=== PATIENT | female | born 1980 | race Caucasian/White ===

== ENCOUNTER 2016-08-14 08:31 | Emergency (ER) | payer MEDICAID ==
[2016-08-14 09:47] VITALS: BP 136/88
--- NOTE | 2016-08-14 09:48 | ERNOTE ---
Date of Service: 08/14/16 Time Seen by Provider: 08/14/16 09:03 Stated Complaint: BRONCHITIS Presenting Symptoms:: cough Source: patient, family Exam Limitations: no limitations Immunizations: IMMUNIZATION HX History of Influenza Vaccine Yes Allergies/Adverse Reactions: Allergies bee venom (honey bee) Allergy (Severe, Verified 08/14/16 08:48) Anaphylaxis Penicillins Allergy (Unknown, Verified 08/14/16 08:48) unknown Home Medications: HOME MEDICATIONS Albuterol Sulfate 2.5 mg IH Q6H 06/20/16 [Last Taken Unknown] Albuterol Sulfate [Proair Hfa] 2 puff IH Q4H PRN 06/20/16 [Last Taken Unknown] Albuterol Sulfate/Ipratropium [Duoneb 2.5-0.5MG/3ML Soln] 3 ml IH QID PRN [Last Taken Unknown] Epinephrine [Epipen 2-David] 0.3 mg IM ONCE PRN 06/20/16 [Last Taken Unknown] Fluticasone Propionate [Flonase] 1 spray NS BID 06/20/16 [Last Taken Unknown] Fluticasone/Salmeterol [Advair 250-50 Diskus] 1 puff IH BID 06/20/16 [Last Taken Unknown] Lanolin Alcohol/Mo/W.pet/[place] [Eucerin Creme] 1 applic TP BID 06/20/16 [Last Taken Unknown] Loratadine [Claritin] 10 mg PO DAILY 06/20/16 [Last Taken Unknown] Vit#96/Ferrous Fum/FA [ S] 1 tab PO DAILY 06/20/16 [Last Taken Unknown] Salicylic Acid 1 applic TP DAILY PRN 06/20/16 [Last Taken Unknown] Levofloxacin [Levaquin] 750 mg PO DAILY #10 tab 08/14/16 [Last Taken Unknown] - History of Present Ilness Narrative: 3 days ago this 35-year-old woman developed a stuffy runny nose, scratchy throat and cough. The cough is nonproductive. She has had no fever. The cough is getting worse. She is not using any treatment but cough medicine at home. Her significant other began a similar illness the day after she did. She often has this in the wintertime. There are no other symptoms. Timing: constant, getting worse Severity: mild, moderate Frequency/Possible Cause: Reports: occasional episodes Modifying Factors - Improves: Reports: nothing Modifying Factors - Worsens: Reports: activity, coughing, lying down Associated Symptoms: Reports: chest pain/soreness, cough, nasal congestion, nasal drainage Prior Treatment: Denies: recently seen, currently on antibiotics Review of Systems - Review of Systems Constitutional: Present: malaise EYE: Present: no symptoms reported ENT: Present: See HPI Respiratory: Present: See HPI Cardiology: Present: no symptoms reported Gastrointestinal/Abdominal: Present: no symptoms reported Genitourinary: Present: no symptoms reported Musculoskeletal: Present: no symptoms reported Skin: Present: no symptoms reported Neurological: Present: no symptoms reported Endocrine: Present: no symptoms reported Hematologic/Lymphatic: Present: no symptoms reported Psych: Present: no symptoms reported All Other Systems: All systems neg except as marked - Patient's Past Medical History Patient History - Medical: Other - cleft palate, ear infections. Patient History - Cardiac/Respiratory: Asthma Patient History - Cancer: No Hx of Cancer Patient History - Surgical Procedures: Ear Tubes, Other - cleft palate repair. - Family History Mother Family History - Medical: , No pertinent hx Family History - Cardiac/Respiratory: Coronary Heart Disease Father Family History - Medical: Family History - Cardiac/Respiratory: No pertinent hx - Social History Living Situations: home Smoking Status: Current every day smoker Alcohol Use: none Drug Use: other Physical Exam - Physical Exam General Appearance: Present: wd/wn, alert, no apparent distress Eye Exam: Normal inspection: bilateral, PERRL: bilateral, EOMI: right - right exotropia Ears, Nose, Throat: Present: normal ENT inspection, hearing grossly normal, nasal congestion, pharyngeal erythema Neck: Present: normal inspection, nontender Respiratory: Present: no respiratory distress, normal breath sounds, no accessory muscle use Cardiovascular/Chest: Present: regular rate, rhythm, no murmur Gastrointestinal/Abdominal: Present: normal bowel sounds, nontender, nondistended, soft, no organomegaly Back Exam: Present: normal inspection Extremity Exam: Present: normal inspection, no edema Neurological Exam: Present: alert, oriented, no motor/sensory deficits Skin Exam: Present: normal color, warm/dry ED Progress - Vital Signs Patient's Vital Signs:: I have reviewed the patient's vital signs. Vital Signs: Vital Signs 08/14/16 08:44 Temperature 36.8 C Pulse Rate 60 Respiratory 12 Rate Blood Pressure 132/37 O2 Sat by Pulse 94 Oximetry - Progress/Reassessment Chief Complaint: Upper Respiratory Symptoms Departure - Departure Clinical Impression: COPD exacerbation Disposition: Home self-care Condition: Good Instructions: Acute Bronchitis Additional Instructions: Followup with Dr. Alberts next week. Referrals: Simon Barba MD [Primary Care Provider] - Prescriptions: Levofloxacin [Levaquin] 750 mg PO DAILY #10 tab
== END 2016-08-14 09:48 | disposition home or self-care (01) ==
LOC: ER 08:31
DX: J44.1 Chronic obstructive pulmonary disease with (acute) exacerbation (principal); F17.210 Nicotine dependence, cigarettes, uncomplicated

== ENCOUNTER 2016-12-11 11:53 | Emergency (ER) | payer MEDICAID ==
[2016-12-11 12:06] VITALS: BP 119/67
--- NOTE | 2016-12-11 12:28 | ERNOTE ---
Date of Service: 12/11/16 Time Seen by Provider: 12/11/16 12:17 Stated Complaint: COUGH Presenting Symptoms:: cough Immunizations: IMMUNIZATION HX Immunizations Up to Date No History of Influenza Vaccine No Hx Pneumococcal Vaccination No Allergies/Adverse Reactions: Allergies venom-honey bee [bee venom (honey bee)] Allergy (Severe, Verified 12/11/16 12:16 ) Anaphylaxis Penicillins Allergy (Unknown, Verified 12/11/16 12:16) unknown Home Medications: HOME MEDICATIONS Albuterol Sulfate 2.5 mg IH Q6H 06/20/16 [Last Taken Unknown] Albuterol Sulfate [Proair Hfa] 2 puff IH Q4H PRN 06/20/16 [Last Taken Unknown] Albuterol Sulfate/Ipratropium [Duoneb 2.5-0.5MG/3ML Soln] 3 ml IH QID PRN [Last Taken Unknown] EPINEPHrine [Epipen 2-David] 0.3 mg IM ONCE PRN 06/20/16 [Last Taken Unknown] Fluticasone Propionate [Flonase] 1 spray NS BID 06/20/16 [Last Taken Unknown] Fluticasone/Salmeterol [Advair 250-50 Diskus] 1 puff IH BID 06/20/16 [Last Taken Unknown] Vit#96/Ferrous Fum/FA [ S] 1 tab PO DAILY 06/20/16 [Last Taken Unknown] Salicylic Acid 1 applic TP DAILY PRN 06/20/16 [Last Taken Unknown] Fluticasone Propionate [Flonase Allergy Relief] 9.9 ml NS DAILY 30 Days [Last Taken Unknown] - History of Present Ilness Narrative: patient states that her symptoms a few weeks ago. coughing, unable to get anything up, stuffy nose. Date (Duration): 12/11/16 Timing: constant Severity: mild Frequency/Possible Cause: Reports: smoke exposure Modifying Factors - Improves: Reports: other - sitting up Modifying Factors - Worsens: Reports: lying down Associated Symptoms: Reports: cough, shortness of breath - with long walks, nasal congestion. Denies: chest pain/soreness, facial pain, earache, headache, sore throat Review of Systems - Review of Systems Constitutional: Present: recent illness. Absent: fever, chills, weight loss EYE: Present: no symptoms reported ENT: Present: See HPI Respiratory: Present: See HPI, shortness of breath, cough - when she lays flat Cardiology: Present: no symptoms reported Gastrointestinal/Abdominal: Present: no symptoms reported Genitourinary: Present: no symptoms reported Musculoskeletal: Present: no symptoms reported Skin: Present: no symptoms reported Neurological: Present: no symptoms reported Endocrine: Present: no symptoms reported Hematologic/Lymphatic: Present: no symptoms reported Psych: Present: no symptoms reported - Patient's Past Medical History Patient History - Medical: Other Patient History - Cardiac/Respiratory: COPD - per patient, Other Patient History - Cancer: No Hx of Cancer Patient History - Surgical Procedures: Ear Tubes, Other Patient History - Other: None - Family History Mother Family History - Medical: , No pertinent hx Family History - Cardiac/Respiratory: Coronary Heart Disease Father Family History - Medical: Family History - Cardiac/Respiratory: No pertinent hx - Social History Living Situations: home Abuse History: No History of abuse Psych History: No pertinent hx Smoking Status: Current every day smoker Have you smoked in the past 12 months: Yes Do you dip or chew tobacco: No Alcohol Use: none Drug Use: other - Immunizations Immunizations Up to Date: No Hx Pneumococcal Vaccination: No History of Influenza Vaccine: No Physical Exam - Physical Exam General Appearance: Present: wd/wn, alert, no apparent distress Eye Exam: Normal inspection: bilateral Ears, Nose, Throat: Present: normal ENT inspection Neck: Present: normal inspection Respiratory: Present: no respiratory distress, normal breath sounds, lungs clear Cardiovascular/Chest: Present: regular rate, rhythm Peripheral Pulses: N=norm/S=strong/W=weak/B=bound/A=absent: Radial (R): Normal, Radial (L): Normal Gastrointestinal/Abdominal: Present: normal bowel sounds, soft Back Exam: Present: normal inspection, normal range of motion Extremity Exam: Present: normal inspection, normal range of motion Neurological Exam: Present: alert, oriented, normal mood/affect, no motor/ sensory deficits Skin Exam: Present: normal color, warm/dry Lymphatic Exam: Present: no adenopathy ED Progress - Vital Signs Vital Signs: Vital Signs 12/11/16 12:01 Temperature 36.9 C Pulse Rate 73 Respiratory 18 Rate Blood Pressure 119/67 O2 Sat by Pulse 98 Oximetry - Progress/Reassessment Chief Complaint: Upper Respiratory Symptoms Departure - Departure Clinical Impression: Environmental allergies Disposition: Home Follow Up Needed Condition: Stable Instructions: Allergies, [id number] Additional Instructions: Tinea any previous home medications. Return to the emergency room symptoms persist or become worse. Follow up with her primary care doctor on Monday if needed. Referrals: Simon Barba MD [Primary Care Provider] - Prescriptions: Fluticasone Propionate [Flonase Allergy Relief] 9.9 ml NS DAILY 30 Days
--- OUTSIDE RECORDS SUMMARY | 2016-12-11 12:29 | XMS REPORT | Continuity of Care Document ---
:1980 Author Organization [facility] ([facility]) Address [address] [place] [address] Phone [phone] Care Team Providers Name Role Phone Unavailable Primary Care Provider Unavailable Source Comments This disclosure is being made pursuant to the Care Everywhere program, applicable federal and state laws, and may not contain all informaitonavailable regarding this patient.[facility] ([facility]) Active Allergies and Adverse Reactions Allergen Noted Date Severity Reactions Comments Penicillins Unknown Current Medications Not on file Active Problems Not on file Social History Tobacco Use Types Packs/Day Years Used Date Never Assessed Last Filed Vital Signs Vital Sign Reading Time Taken Blood Pressure 124/60 11/03/2005 4:00 PM OPERATIONS AGENT Pulse 64 11/03/2005 4:00 PM OPERATIONS AGENT Temperature 37.1 C (98.78 F) 11/03/2005 4:00 PM OPERATIONS AGENT Respiratory Rate 16 11/03/2005 4:00 PM OPERATIONS AGENT Height 1.64 m (5' 4.56") 11/02/2005 5:23 PM OPERATIONS AGENT Weight 50.898 kg (112 lb 3.4 oz) 11/02/2005 5:23 PM OPERATIONS AGENT Body Mass Index 18.92 11/02/2005 5:23 PM OPERATIONS AGENT Oxygen Saturation - - Plan of Care Health Maintenance Due Date Last Done Comments Hepatitis B Vaccine (1 of 3 - Primary Series) 1980 Tdap Vaccine 10/08/1990 Lipid Disorder Screening 10/08/1997 MMR Vaccine 10/08/1997 Td Vaccine 10/08/1997 Varicella Vaccine (1 of 2 - Adult - No Evidence of 10/08/1997 Immunity) Cervical Cancer Screening 10/08/2009 Influenza Vaccine: Seasonal (#1) 03/07/2016 Results from Last 3 Months Not on file
== END 2016-12-11 12:53 | disposition home or self-care (01) ==
LOC: ER 11:53
DX: T78.49XA Other allergy, initial encounter (principal); Z72.0 Tobacco use; J44.9 Chronic obstructive pulmonary disease, unspecified

== ENCOUNTER 2017-04-25 20:32 | Emergency (ER) | payer MEDICAID ==
[2017-04-25] MEDS ORDERED: ALBUTEROL SULFATE/IPRATROPIUM 3 ML NEBU IH ONE ×2 (21:10→21:17)
--- NOTE | 2017-04-25 21:16 | ERNOTE ---
Time Seen by Provider: 04/25/17 21:04 Stated Complaint: COUGH Presenting Symptoms:: cough Source: patient Exam Limitations: no limitations Immunizations: IMMUNIZATION HX Immunizations Up to Date No History of Influenza Vaccine No Hx Pneumococcal Vaccination No Allergies/Adverse Reactions: Allergies venom-honey bee [bee venom (honey bee)] Allergy (Severe, Verified 12/11/16 12:16 ) Anaphylaxis Penicillins Allergy (Unknown, Verified 12/11/16 12:16) unknown Home Medications: HOME MEDICATIONS Albuterol Sulfate 2.5 mg IH Q6H 06/20/16 [Last Taken Unknown] Albuterol Sulfate [Proair Hfa] 2 puff IH Q4H PRN 06/20/16 [Last Taken Unknown] Albuterol Sulfate/Ipratropium [Duoneb 2.5-0.5MG/3ML Soln] 3 ml IH QID PRN [Last Taken Unknown] EPINEPHrine [Epipen 2-David] 0.3 mg IM ONCE PRN 06/20/16 [Last Taken Unknown] Fluticasone Propionate [Flonase] 1 spray NS BID 06/20/16 [Last Taken Unknown] Fluticasone/Salmeterol [Advair 250-50 Diskus] 1 puff IH BID 06/20/16 [Last Taken Unknown] Vits96/Iron Fum/Folic [ S] 1 tab PO DAILY 06/20/16 [Last Taken Unknown] Salicylic Acid 1 applic TP DAILY PRN 06/20/16 [Last Taken Unknown] Fluticasone Propionate [Flonase Allergy Relief] 9.9 ml NS DAILY 30 Days spray.susp 12/11/16 [Last Taken Unknown] Azithromycin 250 mg PO DAILY #4 tablet 04/25/17 [Last Taken Unknown] - History of Present Ilness Narrative: Pt has had upper respiratory symptoms for about a week and has increasing shortness of breath and wheezing Timing: getting worse Severity: moderate Frequency/Possible Cause: Reports: frequent episodes Modifying Factors - Improves: Reports: albuterol Modifying Factors - Worsens: Reports: lying down Review of Systems - Review of Systems Constitutional: Absent: fever, chills EYE: Present: no symptoms reported ENT: Present: nose congestion, nasal drainage, sore throat Respiratory: Present: See HPI Cardiology: Absent: chest pain, palpitations Gastrointestinal/Abdominal: Absent: nausea, vomiting Genitourinary: Present: no symptoms reported Musculoskeletal: Present: no symptoms reported Skin: Present: no symptoms reported Neurological: Present: no symptoms reported Endocrine: Present: no symptoms reported Hematologic/Lymphatic: Present: no symptoms reported Psych: Present: no symptoms reported - Patient's Past Medical History Patient History - Medical: Other Patient History - Cardiac/Respiratory: COPD, Other Patient History - Cancer: No Hx of Cancer Patient History - Surgical Procedures: Ear Tubes, Other Patient History - Other: None - Family History Mother Family History - Medical: , No pertinent hx Family History - Cardiac/Respiratory: Coronary Heart Disease Father Family History - Medical: Family History - Cardiac/Respiratory: No pertinent hx - Social History Living Situations: home Abuse History: No History of abuse Psych History: No pertinent hx Smoking Status: Current every day smoker Have you smoked in the past 12 months: Yes Do you dip or chew tobacco: No Alcohol Use: none Drug Use: other - Immunizations Immunizations Up to Date: No Hx Pneumococcal Vaccination: No History of Influenza Vaccine: No Physical Exam - Physical Exam General Appearance: Present: wd/wn, alert, no apparent distress Head Exam: Present: normal inspection, no evidence of injury Eye Exam: Normal inspection: bilateral Ears, Nose, Throat: Present: nasal congestion Neck: Present: normal inspection, nontender Respiratory: Present: no respiratory distress, rales, rhonchi, wheezing Cardiovascular/Chest: Present: regular rate, rhythm, no murmur Back Exam: Present: normal inspection, normal range of motion Extremity Exam: Present: normal inspection, normal range of motion Neurological Exam: Present: alert, oriented, normal mood/affect Skin Exam: Present: normal color, warm/dry Lymphatic Exam: Present: no adenopathy ED Progress - Results and Orders Patient's Lab Results:: I have reviewed the patient's lab results. Results and Orders: Laboratory Tests 04/25/17 04/25/17 21:23 21:23 WBC 11.1 H Hgb 12.8 Hct 36.2 L Plt Count 334 Sodium 141 Potassium 3.2 L Chloride 105 BUN 8 Creatinine 0.96 Random Glucose 130 H Calcium 8.6 Total Bilirubin 0.1 AST 18 ALT 23 Alkaline Phosphatase 68 Total Protein 6.9 Albumin 3.6 - Vital Signs Patient's Vital Signs:: I have reviewed the patient's vital signs. Vital Signs: Vital Signs 04/25/17 20:34 Temperature 37.4 C Pulse Rate 62 Respiratory 18 Rate Blood Pressure 135/76 O2 Sat by Pulse 97 Oximetry - X-Ray X-Ray #1 X-Ray: chest Interpretation: Interp. by me X-ray Comments: no infiltrate or effusion. Sternotomy wires noted. - Progress/Reassessment Chief Complaint: Upper Respiratory Symptoms Departure - Departure Clinical Impression: COPD exacerbation Disposition: Home Follow Up Needed Condition: Good Instructions: Chronic Obstructive Pulmonary Disease Exacerbation, [id number] Referrals: Simon Barba MD [Primary Care Provider] - Prescriptions: Azithromycin 250 mg PO DAILY #4 tablet
[2017-04-25 21:29] LABS: Hematocrit 36.2 % (37.0-47.0); Hemoglobin 12.8 gm/dL (12.5-16.0); Mean Cell Volume 85.2 fl (78-100); Mean Corpuscular Hemoglobin 30.1 pg (27-31); Mean Corpuscular Hgb Conc 35.4 g/dl (32-36); Mean Platelet Volume 9.4 fl (6.0-9.5); Neutrophil # 6.8 K/mm3 (1.3-6.0); Neutrophil % 61.3 % (42-75.0); Platelet Count 334 K/mm3 (150-450); Red Blood Count 4.25 M/mm3 (4.2-5.4); White Blood Count 11.1 K/mm3 (4.0-10.5)
[2017-04-25 21:51] LABS: Albumin * 3.6 gm/dl (3.4-5.0); Anion Gap 15.1 mmol/L (6.8-13.8); BUN/Creatinine Ratio 8.3 (9.0-21.6); Bilirubin, Total 0.1 mg/dL (0.0-1.1); Ca. Corrected For Albumin 8.6 mg/dL (8.4-10.2); Calcium * 8.6 mg/dL (7.9-10.9); Carbon Dioxide 24.1 mmol/L (24-32.6); Potassium 3.2 mmol/L (3.4-4.6); Total Protein 6.9 gm/dL (6.2-8.2)
[2017-04-25] MEDS ORDERED: AZITHROMYCIN 250 MG TABLET PO ONE (21:55)
[2017-04-25] MEDS ORDERED: AZITHROMYCIN 250 MG TABLET ONE (21:59)
[2017-04-25 22:03] VITALS: BP 128/56
== END 2017-04-25 22:11 | disposition home or self-care (01) ==
LOC: ER 20:32
DX: J44.1 Chronic obstructive pulmonary disease with (acute) exacerbation (principal); F17.200 Nicotine dependence, unspecified, uncomplicated

== ENCOUNTER 2018-06-02 14:47 | Inpatient (IN) ==
[2018-06-03] MEDS ORDERED: ONDANSETRON HCL/PF 2 MG/ML VIAL IV PRN (18:00)
[2018-06-03] MEDS ORDERED: OXYTOCIN/DEXTROSE 5%-WATER 30 UNITS/500 ML BAG IV ONE (18:00)
[2018-06-03] MEDS ORDERED: NALBUPHINE HCL 10 MG/ML AMPUL IV PRN ×2 (18:00)
[2018-06-03] MEDS ORDERED: LIDOCAINE HCL 50 ML VIAL PERI PRN (18:00)
[2018-06-03] MEDS: MISOPROSTOL 100 MCG TABLET VG PRN ×2 (19:33→23:45)
[2018-06-03 20:06] LABS: Cocaine Ur Negative (NEGATIVE); Urine Barbiturate Negative (NEGATIVE); Urine Benzodiazepines Negative (NEGATIVE); Urine Opiates Negative (NEGATIVE); Urine PCP Negative (NEGATIVE); Urine THC Negative (NEGATIVE)
[2018-06-04] MEDS: RINGER'S SOLUTION,LACTATED 1,000 ML IV PRN ×3 (06:53→15:01)
[2018-06-04] MEDS ORDERED: ONDANSETRON HCL/PF 2 MG/ML VIAL IV PRN (09:13)
[2018-06-04] MEDS ORDERED: NALOXONE HCL 1 MG/1 ML SYRG IV PRN (09:13)
[2018-06-04] MEDS ORDERED: BUPIVACAINE HCL/0.9 % NACL/PF 250 ML EP PRN (09:13)
[2018-06-04] MEDS ORDERED: fentaNYL CITRATE/PF 50 MCG/ML AMPUL IT SCH (09:15)
[2018-06-04] MEDS ORDERED: RINGER'S SOLUTION,LACTATED 1,000 ML IV ONE (09:37)
--- NOTE | 2018-06-04 10:00 | HP ---
Chief Complaint - Chief Complaint Date of Service: 06/04/18 Time of Service: 09:45 Chief Complaint: IOL for oligohydramnios History of Present Illness: The patient presented to L&D for a medical induction of labor for oligohydramnios. She reported contractions that are not too painful yet. She denied vaginal bleeding or loss of fluid. Fetus is active. Medical History (Last Reviewed 05/11/18 @ 13:55 by Simon Barba MD) Abnormal Pap smear of cervix (Resolved) Onset Date: Unknown 10/15/2008, 07/22/2009, 01/05 LSIL, HSIL, HSIL Anaphylaxis (Acute) Onset Date: 12/11/15 COPD (chronic obstructive pulmonary disease) (Chronic) Onset Date: 09/01/15 HSV (herpes simplex virus) anogenital infection (Chronic) Onset Date: 12/23/11 pt states she has never had a break out. 12/13/17 jirn Personality disorder (Chronic) Onset Date: Unknown Psoriasis (Chronic) Onset Date: Unknown Rhinitis, chronic (Chronic) Onset Date: 09/02/15 Viral upper respiratory infection (Acute) Onset Date: Unknown Anaphylaxis (Acute) Onset Date: Unknown Bee stings. Penicillin. Her epi-pens are . Tobacco abuse counseling (Acute) Onset Date: Unknown Spent 5 minutes (Acute) Onset Date: Unknown Tobacco abuse (Chronic) Onset Date: 09/02/15 Laryngeal disorder (Chronic) Onset Date: 2005 Hearing loss (Chronic) Onset Date: Unknown Bilateral Depression (Chronic) Onset Date: 01/28/14 and not yet delivered (Acute) Onset Date: 12/13/17 Asthma (Chronic) Onset Date: 01/25/14 AMA (advanced maternal age) multigravida 35+ (Chronic) Onset Date: 12/13/17 Ear pain, left (Inactive) Onset Date: Unknown Foot pain, left (Inactive) Onset Date: Unknown COPD exacerbation (Acute) Onset Date: Unknown Only a little better. Has been on prednisone for 2 days. Environmental allergies (Chronic) Onset Date: Unknown Surgical History: Surgical History (Last Reviewed 05/11/18 @ 13:55 by Simon Barba MD) cleft palate repair (Resolved) Onset Date: Unknown History of colposcopy (Resolved) Onset Date: 06/22/10 moderate squamous cell dysplasia (high grade) H/O heart surgery (Resolved) Onset Date: Unknown Infancy, fixed hole in heart H/O LEEP (Resolved) Onset Date: 08/03/10 ELTON I & ELTON II History of oral surgery (Resolved) Onset Date: Unknown History of myringotomy (Resolved) Onset Date: 2012 bilateral ears, right has been removed Family History: Family History (Last Reviewed 05/11/18 @ 13:55 by Simon Barba MD) Father Diabetes Grandmother , 60 yo Cancer breast Mother Heart disease Cancer Breast Sister Cardiac abnormality Social History: Preferred Language Divehi Smoking Status Current every day smoker Abuse History No History of abuse Psych History No pertinent hx (Last Updated 05/31/18 @ 15:32 by Pat Booker MD) No Social History Section defined Review Of Systems (GEN) - Review of Systems Misc: All systems neg except as marked Immunizations: IMMUNIZATION HX Immunizations Up to Date Yes History of Influenza Vaccine No Hx Pneumococcal Vaccination No Allergies/Adverse Reactions: Allergies Allergy/AdvReac Type Severity Reaction Status Date / Time Penicillins Allergy Severe Anaphylaxis Verified 06/03/18 17:58 venom-honey bee Allergy Severe Anaphylaxis Verified 06/03/18 17:58 [bee venom (honey bee)] Home Medications: HOME MEDICATIONS vits no.126-ferrous fum 28 mg iron-folic acid 800 mcg tablet 1 tab PO DAILY tab 02/08/18 [Last Taken Unknown] white petrolatum-mineral oil topical cream 1 applic TP BID 02/08/18 [Last Taken Unknown] famotidine 20 mg tablet 20 mg PO BID 30 Days #60 tab 03/20/18 [Last Taken Unknown] ferrous sulfate 325 mg (65 mg iron) tablet 325 mg PO DAILY tab 04/12/18 [Last Taken Unknown] epinephrine 0.3 mg/0.3 mL injection, auto-injector 0.3 mg IM Q10M PRN #2 ea 05/02/18 [Last Taken Unknown] fluticasone 232 mcg/actuation breath activated powder inhaler 1 inh IH BID #1 ea 05/14/18 [Last Taken Unknown] Exam - Exam Vital Signs: Vital Signs - Last Taken Temp 37.0 C 06/03/18 18:15 Pulse 68 06/03/18 18:15 Resp 18 06/03/18 18:15 BP 124/59 06/03/18 18:15 Pulse Ox 94 06/03/18 18:15 Constitutional: Present: Alert, Oriented x3, Cooperative, No distress Respiratory: Present: lungs clear, normal breath sounds, no respiratory distress Cardiovascular/Chest: Present: regular rate, rhythm, no murmur Abdomen: Present: soft, nontender, nondistended Extremity: Present: non-tender, no calf tenderness, pedal edema Skin Exam: Present: normal color, warm/dry, no cyanosis Appearance: Present: appropriate appearance Eye contact: Present: cooperative Thoughts: Present: normal thought pattern Diagnostic Studies: Laboratory Results Urine Opiates Screen Negative (NEGATIVE) 06/03/18 19:51 Barbiturate Screen Negative (NEGATIVE) 06/03/18 19:51 Ur Phencyclidine Scrn Negative (NEGATIVE) 06/03/18 19:51 Urine Amphetamine Negative (NEGATIVE) 06/03/18 19:51 U Benzodiazepines Scrn Negative (NEGATIVE) 06/03/18 19:51 Urine Cocaine Screen Negative (NEGATIVE) 06/03/18 19:51 Urine Marijuana (THC) Negative (NEGATIVE) 06/03/18 19:51 Blood Type O Positive 06/03/18 18:10 Antibody Screen Negative 06/03/18 18:10 Assessment/Plan - Narrative Narrative: 37 yo at 36w2d who presented to labor and delivery for an induction of labor due to oligohydramnios. The patient received two doses of misoprostol overnight for ripening following by pitocin administration. AROM was performed for a small amount of clear fluid as expected with an AFV of 4cm. Her cervix at the time of rupture of membranes was 2cm/same as the last examination. Pt to receive epidural PRN. The patient is GBS negative and thus GBS prophylaxis is not indicated The patient has a history of HSV. The patient has never had an outbreak and instead had serum testing done for HSV. Serum testing for HSV is not recommended and instead viral culture of a lesion is indicated for diagnosis of HSV. I performed an examination of the patient's external genitalia as well as an examination of the patient's cervix and both were free of lesions. Therefore, HSV prophylaxis for two days is not indicated secondary to the history as well as to a normal examination. The EFW is not in the IUGR range but the patient did have an interval decrease in the growth again supporting IOL at 36 weeks gestation. The patient also has a history of COPD and she is noncompliant with treatment. She is a heavy smoker. The patient has a history of repair of a hole in the heart as an . Both maternal and echos were normal. The specific defect is unknown as the patient is a poor historian. The patient also has a history of cleft palate repair. The location of the defect is unknown as the patient is a poor historian.
--- NOTE | 2018-06-04 11:02 | ANES ---
Anesthesia Pre Procedure Eval Vitals/Labs: Last Vital Signs Temp 37.0 C 06/03/18 18:15 Pulse 68 06/03/18 18:15 Resp 18 06/03/18 18:15 BP 124/59 06/03/18 18:15 Pulse Ox 94 06/03/18 18:15 HOME MEDICATIONS vits no.126-ferrous fum 28 mg iron-folic acid 800 mcg tablet 1 tab PO DAILY tab 02/08/18 [Last Taken Unknown] white petrolatum-mineral oil topical cream 1 applic TP BID 02/08/18 [Last Taken Unknown] famotidine 20 mg tablet 20 mg PO BID 30 Days #60 tab 03/20/18 [Last Taken Unkn own] ferrous sulfate 325 mg (65 mg iron) tablet 325 mg PO DAILY tab 04/12/18 [Last Taken Unknown] epinephrine 0.3 mg/0.3 mL injection, auto-injector 0.3 mg IM Q10M PRN #2 ea 05/02/18 [Last Taken Unknown] fluticasone 232 mcg/actuation breath activated powder inhaler 1 inh IH BID #1 ea 05/14/18 [Last Taken Unknown] Allergies/Adverse Reactions: Allergies Allergy/AdvReac Type Severity Reaction Status Date / Time Penicillins Allergy Severe Anaphylaxis Verified 06/03/18 17:58 venom-honey bee Allergy Severe Anaphylaxis Verified 06/03/18 17:58 [bee venom (honey bee)] - Planned Procedure Planned Procedure: MEDICAL INDUCTION Medication List Reviewed:: Yes Allergies Verified: Yes Medical History (Last Reviewed 05/11/18 @ 13:55 by Simon Barba MD) Abnormal Pap smear of cervix (Resolved) Onset Date: Unknown 10/15/2008, 07/22/2009, 01/05 LSIL, HSIL, HSIL Anaphylaxis (Acute) Onset Date: 12/11/15 COPD (chronic obstructive pulmonary disease) (Chronic) Onset Date: 09/01/15 HSV (herpes simplex virus) anogenital infection (Chronic) Onset Date: 12/23/11 pt states she has never had a break out. 12/13/17 jirn Personality disorder (Chronic) Onset Date: Unknown Psoriasis (Chronic) Onset Date: Unknown Rhinitis, chronic (Chronic) Onset Date: 09/02/15 Viral upper respiratory infection (Acute) Onset Date: Unknown Anaphylaxis (Acute) Onset Date: Unknown Bee stings. Penicillin. Her epi-pens are . Tobacco abuse counseling (Acute) Onset Date: Unknown Spent 5 minutes (Acute) Onset Date: Unknown Tobacco abuse (Chronic) Onset Date: 09/02/15 Laryngeal disorder (Chronic) Onset Date: 2005 Hearing loss (Chronic) Onset Date: Unknown Bilateral Depression (Chronic) Onset Date: 01/28/14 and not yet delivered (Acute) Onset Date: 12/13/17 Asthma (Chronic) Onset Date: 01/25/14 AMA (advanced maternal age) multigravida 35+ (Chronic) Onset Date: 12/13/17 Ear pain, left (Inactive) Onset Date: Unknown Foot pain, left (Inactive) Onset Date: Unknown COPD exacerbation (Acute) Onset Date: Unknown Only a little better. Has been on prednisone for 2 days. Environmental allergies (Chronic) Onset Date: Unknown Surgical History (Last Reviewed 06/04/18 @ 11:01 by Emmanuel Santana CRNA) cleft palate repair (Resolved) Onset Date: Unknown History of colposcopy (Resolved) Onset Date: 06/22/10 moderate squamous cell dysplasia (high grade) H/O heart surgery (Resolved) Onset Date: Unknown Infancy, fixed hole in heart H/O LEEP (Resolved) Onset Date: 08/03/10 ELTON I & ELTON II History of oral surgery (Resolved) Onset Date: Unknown History of myringotomy (Resolved) Onset Date: 2012 bilateral ears, right has been removed Family History (Last Reviewed 06/04/18 @ 11:01 by Emmanuel Santana CRNA) Father Diabetes Grandmother , 60 yo Cancer breast Mother Heart disease Cancer Breast Sister Cardiac abnormality - Family Anesthesia History Family History:: no untoward family reactions to anesthesia - Airway/Neck/Teeth Denture Type: None Neck Exam: full range of motion Mallampatti Score: 2 Thyromental (T-M) distance: > 6 cm Mandibulo Hyoid distance: > 3 cm - Respiratory Smoking Status: Current every day smoker Discussed smoking cessation including day of surgery: Yes Sleep Apnea currently treated: No Sleep Apnea by current assessment: No - Cardiovascular Patient History - Cardiac/Respiratory: No pertinent hx Tolerates Activity: Fair Heart Sounds: S1 & S2, Regular - Anesthesia Assessment and Plan ASA Class: PS, II, E Anesthesia Type Plan: Epidural
--- NOTE | 2018-06-04 11:48 | ANES ---
Post Anesthesia Assessment - Vital Signs Vitals: Last Vital Signs Temp 37.0 C 06/03/18 18:15 Pulse 68 06/03/18 18:15 Resp 18 06/03/18 18:15 BP 124/59 06/03/18 18:15 Pulse Ox 94 06/03/18 18:15 Airway Patency: Normal - Mental Status Level Of Consciousness: Awake - Pain Level Pain Score: 2 - N/V Assessment Nausea/Vomiting Presence: None Dehydration:: No
--- NOTE | 2018-06-04 11:48 | ANES ---
Post Anesthesia Discharge - Transfer of Care Transfer of Care handoff given to nurse: Yes - Anesthesia Post Op Note Anesthesia Post Op Note: care transferred to OB RN
[2018-06-04 12:10] LABS: Hematocrit 35.7 % (37.0-47.0); Hemoglobin 12.4 gm/dL (12.5-16.0); Mean Cell Volume 87.1 fl (78-100); Mean Corpuscular Hemoglobin 30.2 pg (27-31); Mean Corpuscular Hgb Conc 34.7 g/dl (32-36); Mean Platelet Volume 9.4 fl (8-12.5); Neutrophil # 13.3 K/mm3 (1.3-6.0); Neutrophil % 82.6 % (42-75.0); Platelet Count 284 K/mm3 (150-450); White Blood Count 16.1 K/mm3 (4.0-10.5)
[2018-06-04 12:25] LABS: Albumin * 2.5 gm/dl (3.4-5.0); Anion Gap 12.8 mmol/L (6.8-13.8); BUN/Creatinine Ratio 11.6 (9.0-21.6); Bilirubin, Total 0.4 mg/dL (0.0-1.1); Ca. Corrected For Albumin 9.6 mg/dL (8.4-10.2); Calcium * 8.7 mg/dL (7.9-10.9); Carbon Dioxide 25.2 mmol/L (24-32.6); Random Urine Total Protein Less than 6.0 mg/dL (0-12); Total Protein 6.5 gm/dL (6.2-8.2)
--- NOTE | 2018-06-04 14:01 | ANES ---
Anesthesia Procedure Note Procedure Note: ANESTHESIA PROCEDURE NOTE Date of Procedure: 06/04/2018 Time of procedure:[]. 1030 Performed by: Luis Santana CRNA Residential Instructor: None. Preprocedure diagnosis: Active labor. Post procedure diagnosis: Same. Procedure: Insertion of labor epidural. Indications: The patient is a [37] -year-old [multigravida] female in active labor requesting labor epidural for pain management. Findings: See below. Details of the procedure: The patient was placed in a sitting position. Back was prepped with DuraPrep. Patient was then draped in a sterile fashion. Lidocaine 1% was infiltrated to the skin and subcutaneous tissues at the level of the L3 4 interspace. The epidural space was identified using a 18-gauge Tuohy needle with [id number] technique. 20 mcg fentanyl was given intrathecally using a 27 ga. spinal needle. Epidural catheter was inserted without difficulty. Negative test dose was elicited using 5 mL of 1.5% preservative-free lidocaine plus epinephrine 1 200,000. The epidural catheter was then taped and secured in place. EBL: Minimal. Fluids: N/A. Specimen: N/A. Post procedure condition: The patient tolerated the procedure well. No complications were noted. Thank you for this consultation. Turcios CRNA
[2018-06-04] MEDS ORDERED: GLYCERIN/WITCH HAZEL LEAF 40 APPL BOX TP PRN (17:33)
[2018-06-04] MEDS ORDERED: BENZOCAINE/MENTHOL 81 SPRAY CAN TP PRN (17:33)
[2018-06-04] MEDS ORDERED: OXYTOCIN/DEXTROSE 5%-WATER 30 UNITS/500 ML BAG IV ONE (17:33)
[2018-06-04] MEDS ORDERED: SENNOSIDES 8.6 MG TABLET PO PRN (17:33)
[2018-06-04] MEDS ORDERED: diphenhydrAMINE HCL 25 MG CAPSULE PO PRN (17:33)
[2018-06-04] MEDS ORDERED: BISACODYL 10 MG SUPP.RECT RC PRN (17:33)
[2018-06-04] MEDS ORDERED: ACETAMINOPHEN 325 MG TABLET PO PRN (17:33)
[2018-06-04] MEDS ORDERED: oxyCODONE HCL/ACETAMINOPHEN 1 TAB TABLET PO PRN (17:33)
[2018-06-04] MEDS ORDERED: HYDROCORTISONE 30 APPL TUBE TP PRN (17:33)
--- NOTE | 2018-06-04 17:49 | OR ---
Operative Report - Dictated Report Narrative: Date of delivery: 06/04/2018 Time of delivery: 1705 Gender: male weight: 2191 grams APGARS: 04/15 The patient presented to labor and delivery for a medical induction of labor for oligohydramnios. The fetus was not IUGR but had an EFW less than the 50th percentile. The patient also has COPD and is a heavy smoker and noncompliant with treatment. During labor the patient developed elevated blood pressures and pre-eclampsia workup revealed pre-eclampsia without severe features. The patient progressed to complete dilation. The baby delivered in the KARINA presentation. Cord clamping was delayed for 60 seconds. The placenta was delivered by expression and appeared intact. Cytotec 800 mcg given rectally due to uterine atony. Lacerations: none EBL: 250 mL Complications: none Definition: * The number of deliveries resulting in a live the patient experienced prior to current hospitalization * The previous delivery of live twins or any live multiple gestation is considered one live event. *If primagravida or nulliparous is documented select zero for the number of previous live births. Live births: 2
[2018-06-04] MEDS ORDERED: MISOPROSTOL 200 MCG TABLET RC ONE (18:42)
[2018-06-04] MEDS: DOCUSATE SODIUM 100 MG CAPSULE PO SCH (21:35)
[2018-06-05] MEDS: IBUPROFEN 800 MG TABLET PO PRN ×2 (02:08→16:37)
--- NOTE | 2018-06-05 08:40 | PN ---
Subjective - Date and Time Seen Date: 06/05/18 Time: 08:38 Subjective Narrative: No complaints. VB is normal Objective Objective Narrative: See vital signs - Review of Systems Generalized/Overall Review: Reports: No Symptoms Reported Misc: All systems neg except as marked - Vitals Vitals: Last Vital Signs Temp 36.3 C 06/05/18 00:56 Pulse 65 06/05/18 00:56 Resp 16 06/05/18 00:56 BP 142/67 H 06/05/18 00:56 Pulse Ox 97 06/05/18 00:56 - Abnormal Lab Findings Abnormal Lab Findings: Abnormal Lab Results 06/04/18 06/04/18 06/04/18 Range/Units 12:04 12:04 12:04 WBC 16.1 H (4.0-10.5) K/mm3 RBC 4.10 L (4.2-5.4) M/mm3 Hgb 12.4 L (12.5-16.0) gm/dL Hct 35.7 L (37.0-47.0) % Immature Gran % (Auto) 0.80 H (0.001-0.429) % Immature Gran # (Auto) 0.13 H (0.000-0.0310) K/mm3 Neutrophils % 82.6 H (42-75.0) % Lymphocytes % 10.0 L (20-51) % Neutrophils # 13.3 H (1.3-6.0) K/mm3 Albumin 2.5 L (3.4-5.0) gm/dl Ur Random Creatinine 15.1 L (60-200) mg/dL [place] Prot/Creat Ratio 397 H (0-199) mg/gm - Exam Constitutional: Present: Alert, Oriented x3, Cooperative, No distress Abdomen: Present: soft, nontender, nondistended - fundus is firm Extremity: Present: no calf tenderness, pedal edema Skin Exam: Present: normal color, warm/dry, no cyanosis Appearance: Present: appropriate appearance Eye contact: Present: cooperative Thoughts: Present: normal thought pattern Cauti Physician Documentation - Urinary Catheter Management Urethral (Koo) Urethral Indwelling: No Date of Insertion: 06/04/18 Time of Insertion: 11:00 Assessment/Plan Plan Narrative: PPD 1 s/p Doing well Discharge tomorrow
[2018-06-05] MEDS ORDERED: WATER IV ONE ×2 (08:59)
[2018-06-05] MEDS ORDERED: DEXTROSE 5% IV ONE ×2 (08:59)
[2018-06-05] MEDS ORDERED: GENTAMICIN SULFATE IV ONE ×2 (08:59)
[2018-06-05] MEDS: DOCUSATE SODIUM 100 MG CAPSULE PO SCH (09:30)
[2018-06-05] MEDS ORDERED: PSEUDOEPHEDRINE HCL 30 MG TAB PO ONE (11:45)
[2018-06-05] MEDS: oxyCODONE HCL/ACETAMINOPHEN 1 TAB TABLET PO PRN (16:37)
[2018-06-06] MEDS: IBUPROFEN 800 MG TABLET PO PRN (00:33)
[2018-06-06] MEDS: oxyCODONE HCL/ACETAMINOPHEN 1 TAB TABLET PO PRN (00:33)
[2018-06-06] MEDS: DOCUSATE SODIUM 100 MG CAPSULE PO SCH ×2 (01:44→10:09)
[2018-06-06] MEDS ORDERED: RINGER'S SOLUTION,LACTATED 1,000 ML IV PRN (06:00)
[2018-06-06] MEDS ORDERED: CLINDAMYCIN PHOSPHATE 900 MG in DEXTROSE 5 % IN WATER 100 ML IV PRN ×2 (06:00)
--- NOTE | 2018-06-06 08:34 | PN ---
Subjective - Date and Time Seen Date: 06/06/18 Time: 08:33 Subjective Narrative: No complaints. VB is normal Objective Objective Narrative: See vital signs - Review of Systems Generalized/Overall Review: Reports: No Symptoms Reported Misc: All systems neg except as marked - Vitals Vitals: Last Vital Signs Temp 36.1 C 06/05/18 19:10 Pulse 55 L 06/06/18 00:29 Resp 16 06/06/18 00:29 BP 118/64 06/06/18 00:29 Pulse Ox 100 06/06/18 00:29 - Exam Constitutional: Present: Alert, Oriented x3, Cooperative, No distress Abdomen: Present: soft, nontender, nondistended Extremity: Present: non-tender, no calf tenderness Skin Exam: Present: normal color, warm/dry, no cyanosis Appearance: Present: appropriate appearance Eye contact: Present: cooperative Thoughts: Present: normal thought pattern Cauti Physician Documentation - Urinary Catheter Management Urethral (Koo) Urethral Indwelling: No Date of Insertion: 06/04/18 Time of Insertion: 11:00 Assessment/Plan Plan Narrative: PPD 2 s/p Doing well Discharge home - Problems/Diagnosis (1) Oligohydramnios Problem: Acute (2) Oligohydramnios Problem: Acute (3) Pre-eclampsia Problem: Acute (4) Pre-eclampsia Problem: Acute
[2018-06-06 09:53] VITALS: BP 126/67
== END 2018-06-06 13:30 | disposition home or self-care (01) | DRG 806 ==
LOC: OB 06-03 17:52
PROVIDERS: ADMIT Obstetrics & Gynecology; ATTEND Obstetrics & Gynecology
CPT/HCPCS: 36415; 59025; 80053; 80307; 82565; 82570; 84155; 84156; 85025; 86850; 86900; 88307; G0479